=== PATIENT | female | born 1985 | race Caucasian/White ===

== ENCOUNTER 2023-01-06 12:09 | Emergency (ER) | payer OTHER ==
[2023-01-06 12:26] VITALS: BP 105/62; PULSE 66; RESP 18; TEMP 98.4; BMI 26.2
[2023-01-06 13:49] LABS: BASO % 0.8 % (0-2.0); EOS % 1.9 % (0-4.5); HCG,QUALITATIVE URINE Positive; HEMATOCRIT 39.1 % (32.4-45.2); HEMOGLOBIN 12.9 GM/dL (10.7-15.3); LYMPH % 24.5 % (8-40); MCH 32.2 pg (25.7-33.7); MEAN CELL VOLUME 97.6 fl (80-96); MEAN PLT VOLUME 8.1 fl (7.5-11.1); MONO % 6.6 % (3.8-10.2); NEUT % 66.2 % (42.8-82.8); PLATELET COUNT 234 10^3/uL (134-434); RDW 12.7 % (11.6-15.6); WHITE BLOOD COUNT 8.7 K/mm3 (4.0-10.0)
[2023-01-06 13:53] LABS: EPI CELLS >36 /uL (0-25.1); HYALINE CASTS 1 /uL (0-3.1); URINE APPEARANCE CLOUDY; URINE BACTERIA 473 /uL (0-1359); URINE BILIRUBIN NEGATIVE (NEGATIVE); URINE COLOR YELLOW; URINE GLUCOSE (UA) NEGATIVE (NEGATIVE); URINE KETONE NEGATIVE (NEGATIVE); URINE LEUK ESTERASE TRACE (NEGATIVE); URINE NITRITE NEGATIVE (NEGATIVE); URINE PROTEIN NEGATIVE (NEGATIVE); URINE RBC 10 /uL (0-23.9); URINE UROBILINOGEN 0.2 mg/dL (0.2-1.0); URINE WBC 39 /uL (0-25.8)
[2023-01-06 14:09] LABS: POTASSIUM 3.7 mmol/L (3.5-5.1)
[2023-01-06 14:12] LABS: CALCIUM 8.8 mg/dL (8.5-10.1)
[2023-01-06 14:13] LABS: ALBUMIN 3.8 g/dl (3.4-5.0); BLOOD UREA NITROGEN 13.1 mg/dL (7-18)
[2023-01-06 14:16] LABS: CREATININE 0.8 mg/dL (0.55-1.3)
[2023-01-06 14:17] LABS: BILIRUBIN,TOTAL 0.6 mg/dL (0.2-1); TOT PROT 7.3 g/dl (6.4-8.2)
== END 2023-01-06 17:31 | disposition left against medical advice (07) ==
LOC: JER 12:09
DX: O20.9 Hemorrhage in early pregnancy, unspecified (principal); Z3A.01 Less than 8 weeks gestation of pregnancy
CPT/HCPCS: 36415; 76817-TC; 80053; 81003; 84702; 84703; 85025; 86850; 86900; 86901; 87086; 99284-25